=== PATIENT | female | born 1985 | race Two or more races ===

== ENCOUNTER 2019-04-07 08:15 | Day surgery (SDC) | payer OTHER ==
[~2019-04-07 08:15] MED LIST: LASIX20 MG
== END 2019-04-07 17:10 | disposition home or self-care (01) ==
LOC: CIR.AMB 08:15
DX: S63.591D Other specified sprain of right wrist, subsequent encounter (principal)

== ENCOUNTER 2023-04-19 17:14 | Emergency (ER) | payer OTHER ==
[~2023-04-19] VITALS: Ht 152.4 cm; Wt 106.6 kg
[2023-04-19 20:59] LABS: HEMATOCRIT 36.9 % (36.0-45.00); HEMOGLOBIN 12.7 g/dL (12.0-15.00); MEAN CELL VOLUME 85.8 fL (80.00-100.00); MEAN CORPUSCULAR HEMOGLOBIN 29.4 pg (27.00-32.0); MEAN CORPUSCULAR HGB CONC 34.3 g/dl (32.0-36.0); PLATELET COUNT 327 K/uL (150-450); RED CELL DISTRIBUTION WIDTH 13.5 % (11.5-14.5)
[2023-04-19 21:32] LABS: ALBUMIN 3.8 gm/dL (3.4-5.0); BILIRUBIN TOTAL 0.34 mg/dL (0.3-1.2); CALCIUM 9.5 mg/dL (8.5-10.1); CREATININE SERUM 0.89 mg/dL (0.55-1.02); GFR 70.98; GLOBULINA 4.4 G/DL (2.4-3.5); POTASSIUM 4.03 mEq/L (3.5-5.1); TOTAL PROTEIN 8.2 gm/dL (6.4-8.2)
== END 2023-04-19 23:05 | disposition home or self-care (01) ==
LOC: ER 17:14
PROVIDERS: Emergency Medicine
DX: R00.2 Palpitations (principal)